=== PATIENT | male | born 1985 | race Hispanic/Latino ===

== ENCOUNTER 2021-10-22 20:22 | Emergency (ER) | payer SELFPAY ==
[2021-10-22] MEDS ORDERED: FAMOTIDINE 20 MG TAB ONE (21:44)
[2021-10-22] MEDS ORDERED: METHYLPREDNISOLONE 125 MG INJ ONE (21:44)
[2021-10-22] MEDS ORDERED: DIPHENHYDRAMINE 25 MG TAB/CAP ONE (21:44)
--- NOTE | 2021-10-22 23:00 | EDPHYS ---
Physician Documentation [facility] Name: Harvey Stock Age: 36 yrs Sex: Male : 1985 Arrival Date: 10/22/2021 Time: 20:25 Bed 18 Private MD: ED Physician Papito Bustamante HPI: 10/22 21:30 This 36 yrs old Male presents to ER via Ambulatory with complaints of Allergic cp Reaction. 21:30 The patient presents with diffuse swelling, rash, that is diffuse. Onset: The cp symptoms/episode began/occurred 2 day(s) ago. Associated signs and symptoms: Pertinent negatives: abdominal pain, chest pain, dysphagia, fever, shortness of breath, vomiting. Possible causes: was working outside prior to onset of rash. At home the patient or guardian has treated the symptoms with OTC Zyrtec. Severity of symptoms: in the emergency department the symptoms are unchanged despite home interventions. Historical: - Allergies: 21:28 No Known Allergies; ag7 - Home Meds: 21:28 Zyrtec Oral [Active]; ag7 - PMHx: 21:28 None; ag7 - PSHx: 21:28 None; ag7 - Immunization history:: Adult Immunizations unknown, Client reports having NOT received the Covid vaccine. Flu vaccine is not up to date. Patient has never been vaccinated. - Social history:: Smoking status: Patient denies any tobacco usage or history of. ROS: 21:35 Constitutional: Negative for body aches, chills, fever, poor PO intake. cp 21:35 Eyes: Positive for redness, Negative for discharge, pain. cp 21:35 ENT: Negative for drainage from ear(s), ear pain, sore throat, difficulty swallowing, difficulty handling secretions. 21:35 Cardiovascular: Negative for chest pain, edema, palpitations. 21:35 Respiratory: Negative for cough, shortness of breath, wheezing. 21:35 Abdomen/GI: Negative for abdominal pain, nausea, vomiting, and diarrhea. 21:35 Skin: Positive for rash, diffusely. 21:35 All other systems are negative. Exam: 21:40 Constitutional: The patient appears in no acute distress, alert, awake, non-toxic, well cp developed, well nourished. 21:40 Head/Face: Normocephalic, atraumatic. cp 21:40 Eyes: Periorbital structures: appear normal, Conjunctiva: normal, no exudate, no injection, Lids and lashes: appear normal, bilaterally. 21:40 Cardiovascular: Rate: normal. 21:40 Respiratory: the patient does not display signs of respiratory distress, Respirations: normal, no use of accessory muscles, no retractions, labored breathing, is not present, Breath sounds: are clear throughout, no decreased breath sounds, no stridor, no wheezing. 21:40 Skin: rash a moderate rash is noted, urticaria, and is diffusely located. Vital Signs: 21:24 BP 142 / 98; Pulse 77; Resp 20; Temp 98.5(O); Pulse Ox 99% on R/A; Weight 84.37 kg; ag7 Height 5 ft. 7 in. (170.18 cm); Pain 0/10; 23:00 BP 132 / 92; Pulse 69; Resp 16 S; Pulse Ox 98% ; Pain 0/10; ag7 21:24 Body Mass Index 29.13 (84.37 kg, 170.18 cm) ag7 MDM: 21:13 Patient medically screened. cp 22:58 Data reviewed: vital signs, nurses notes. cp 22:58 Differential diagnosis: anaphylaxis, angioedema, urticaria. Counseling: I had a cp detailed discussion with the patient and/or guardian regarding: the historical points, exam findings, and any diagnostic results supporting the discharge/admit diagnosis, to return to the emergency department if symptoms worsen or persist or if there are any questions or concerns that arise at home. Response to treatment: the patient's symptoms have mildly improved after treatment, and as a result, I will discharge patient. ED course: VSS. Patient with no signs of respiratory distress. Will discharge to home for continued monitoring. Administered Medications: 21:45 Drug: SOLU-Medrol (methylPREDNISolone sodium succinate) 125 mg Route: IM; Site: right vc1 gluteus; 21:58 Follow up: Response: No adverse reaction; No change in condition ag7 21:45 Drug: Pepcid (famotidine) 20 mg Route: PO; vc1 21:58 Follow up: Response: No adverse reaction ag7 21:46 Drug: Benadryl (diphenhydrAMINE) 50 mg Route: PO; vc1 21:59 Follow up: Response: No adverse reaction ag7 Disposition: 10/23 07:15 Co-signature as Attending Physician, Papito Bustamante MD. mh7 Disposition Summary: 10/22/21 22:59 Discharge Ordered Location: Home cp Problem: new cp Symptoms: have improved cp Condition: Stable cp Diagnosis - Allergic urticaria cp Followup: cp - With: Maurice Lainez MD - When: 2 - 3 days - Reason: Worsening of condition Discharge Instructions: - Discharge Summary Sheet cp - Allergies, Adult cp Forms: - Medication Reconciliation Form cp - Thank You Letter cp - Antibiotic Education cp - Prescription Opioid Use cp Prescriptions: - Vistaril 50 mg Oral capsule - take 1 capsule by ORAL route 4 times per day; 30 capsule; Refills: 0, Product cp Selection Permitted - Pepcid 20 mg Oral Tablet - take 1 tablet by ORAL route every 12 hours for 10 days; 20 tablet; Refills: 0, cp Product Selection Permitted - Prednisone 20 mg Oral Tablet - take 2 tablets by ORAL route once daily for 5 days then 1 tablet daily for 3 cp days, then 1/2 tablet daily for 2 days; 14 tablet; Refills: 0, Product Selection Permitted Signatures: Lenard Phelan PA PA cp Papito Bustamante MD MD mh7 Pari Bustos RN RN vc1 Amber Thompson RN RN ag7
--- NOTE | 2021-10-22 23:00 | ER ---
Nurse's Notes [facility] Name: Harvey Stock Age: 36 yrs Sex: Male : 1985 Arrival Date: 10/22/2021 Time: 20:25 Bed 18 Private MD: Diagnosis: Allergic urticaria Presentation: 10/22 21:24 Chief complaint: Patient states: , "Two days ago the patient started breaking out ag7 in itchy rash and swelling to the face". Coronavirus screen: Client denies travel out of the [place] in the last 14 days. At this time, the client does not indicate any symptoms associated with coronavirus-19. Ebola Screen: Patient negative for fever greater than or equal to 101.5 degrees Fahrenheit, and additional compatible Ebola Virus Disease symptoms Patient denies exposure to infectious person. Patient denies travel to an Ebola-affected area in the 21 days before illness onset. Onset: The symptoms/episode began/occurred acutely, 2 day(s) ago. Anaphylaxis evaluation, the patient reports or I have noted the following symptoms which indicate a significant risk of anaphylaxis: urticaria swelling to face. Initial Sepsis Screen: Does the patient meet any 2 criteria? No. Patient's initial sepsis screen is negative. Does the patient have a suspected source of infection? No. Patient's initial sepsis screen is negative. Risk Assessment: Do you want to hurt yourself or someone else? Patient reports no desire to harm self or others. Onset of symptoms was October 20, 2021. 21:24 Method Of Arrival: Ambulatory ag7 21:24 Acuity: TAMIR 3 ag7 Historical: - Allergies: 21:28 No Known Allergies; ag7 - Home Meds: 21:28 Zyrtec Oral [Active]; ag7 - PMHx: 21:28 None; ag7 - PSHx: 21:28 None; ag7 - Immunization history:: Adult Immunizations unknown, Client reports having NOT received the Covid vaccine. Flu vaccine is not up to date. Patient has never been vaccinated. - Social history:: Smoking status: Patient denies any tobacco usage or history of. Screenin:30 Abuse screen: Denies threats or abuse. Nutritional screening: No deficits noted. ag7 Tuberculosis screening: No symptoms or risk factors identified. Fall Risk No fall in past 12 months (0 pts). No secondary diagnosis (0 pts). No IV (0 pts). Ambulatory Aid- None/Bed Rest/Nurse Assist (0 pts). Gait- Normal/Bed Rest/Wheelchair (0 pts) Mental Status- Oriented to own ability (0 pts). Total Machado Fall Scale indicates No Risk (0-24 pts). Assessment: 21:29 General: Appears in no apparent distress. Behavior is calm, cooperative, appropriate ag7 for age. Pain: Denies pain. Neuro: Level of Consciousness is awake, alert, obeys commands, Oriented to Appropriate for age. Cardiovascular: Denies chest pain, Patient's skin is warm and dry. Respiratory: Airway is patent Trachea midline Respiratory effort is even, unlabored, Respiratory pattern is regular, symmetrical. Derm: Rash noted that is itchy, red, urticaria, anterior torso, upper extremity bilateral, upper mid back, facial swelling noted. 23:24 Respiratory: Breath sounds are clear. ag7 Vital Signs: 21:24 BP 142 / 98; Pulse 77; Resp 20; Temp 98.5(O); Pulse Ox 99% on R/A; Weight 84.37 kg; ag7 Height 5 ft. 7 in. (170.18 cm); Pain 0/10; 23:00 BP 132 / 92; Pulse 69; Resp 16 S; Pulse Ox 98% ; Pain 0/10; ag7 21:24 Body Mass Index 29.13 (84.37 kg, 170.18 cm) ag7 ED Course: 20:25 Patient arrived in ED. ja2 21:12 Lenard Phelan PA is PHCP. cp 21:12 Papito Bustamante MD is Attending Physician. cp 21:15 Amber Thompson, RN is Primary Nurse. ag7 21:28 Triage completed. ag7 21:31 Arm band placed on. ag7 21:32 Patient has correct armband on for positive identification. Bed in low position. Call ag7 light in reach. Adult w/ patient. 22:58 Maurice Lainez MD is Referral Physician. cp 23:24 No provider procedures requiring assistance completed. Patient did not have IV access ag7 during this emergency room visit. Administered Medications: 21:45 Drug: SOLU-Medrol (methylPREDNISolone sodium succinate) 125 mg Route: IM; Site: right vc1 gluteus; 21:58 Follow up: Response: No adverse reaction; No change in condition ag7 21:45 Drug: Pepcid (famotidine) 20 mg Route: PO; vc1 21:58 Follow up: Response: No adverse reaction ag7 21:46 Drug: Benadryl (diphenhydrAMINE) 50 mg Route: PO; vc1 21:59 Follow up: Response: No adverse reaction ag7 Outcome: 22:59 Discharge ordered by . agusto 23:24 Condition: stable ag7 23:24 Discharge instructions given to patient, Instructed on discharge instructions, follow up and referral plans. medication usage, Demonstrated understanding of instructions, follow-up care, medications, Prescriptions given X 3. 23:25 Discharged to home ambulatory. ag7 23:26 Patient left the ED. ag7 Signatures: Lenard Phelan PA PA cp Alexander, Jessica ja2 Calcote, Vanessa RN RN vc1 Amber Thomspon RN RN ag7
[2021-10-23 06:56] VITALS: TEMP 98.5
[2021-10-23 06:57] VITALS: BP 132/92; O2SAT 98
== END 2021-10-22 23:26 | disposition home or self-care (01) ==
LOC: ER 20:22
DX: L50.0 Allergic urticaria (principal)
CPT/HCPCS: 96372; 99283; J2930